=== PATIENT | female | born 1955 | race Caucasian/White ===

== ENCOUNTER 2018-03-17 08:36 | Day surgery (SDC) | payer OTHER ==
[2018-03-17] MEDS: NS 1,000 ML IV (09:30)
[2018-03-17] MEDS ORDERED: LIDOCAINE 2% INJ 100 MG/5 ML SDV (FOR ANES.) As Ordered (10:20)
[2018-03-17] MEDS ORDERED: PROPOFOL 200 MG/20 ML VIAL As Ordered ×2 (10:20)
== END 2018-03-17 10:55 | disposition home or self-care (01) ==
LOC: M OPP 08:36
DX: Z12.11 Encounter for screening for malignant neoplasm of colon (principal); Z86.010 Personal history of colon polyps; K57.30 Diverticulosis of large intestine without perforation or abscess without bleeding; K64.8 Other hemorrhoids; I10 Essential (primary) hypertension; E78.5 Hyperlipidemia, unspecified; E11.9 Type 2 diabetes mellitus without complications; K21.9 Gastro-esophageal reflux disease without esophagitis; F41.9 Anxiety disorder, unspecified; Z78.0 Asymptomatic menopausal state; J45.909 Unspecified asthma, uncomplicated; M19.90 Unspecified osteoarthritis, unspecified site; R06.83 Snoring; Z85.3 Personal history of malignant neoplasm of breast; Z88.8 Allergy status to other drugs, medicaments and biological substances; Z79.84 Long term (current) use of oral hypoglycemic drugs; Z79.899 Other long term (current) drug therapy; Z80.42 Family history of malignant neoplasm of prostate; Z80.41 Family history of malignant neoplasm of ovary; Z80.3 Family history of malignant neoplasm of breast
CPT/HCPCS: 45378

== ENCOUNTER → 2018-03-26 | Outpatient (CLI) | payer OTHER | LOC: M RAD 09:16 | DX: J32.4 Chronic pansinusitis (principal) | CPT/HCPCS: 70486 ==

== ENCOUNTER → 2018-07-31 | Outpatient (CLI) | payer OTHER | LOC: M RAD 14:23 | DX: J32.4 Chronic pansinusitis (principal) | CPT/HCPCS: 70486 ==

== ENCOUNTER 2018-08-11 10:17 | Day surgery (SDC) | payer OTHER ==
[2018-08-11] MEDS ORDERED: ONDANSETRON 4MG/2ML VIAL (J2405) As Ordered (10:27)
[2018-08-11] MEDS ORDERED: dexameTHASONE 4 MG/ML 1ML VIAL (J1100) As Ordered (10:27)
[2018-08-11] MEDS ORDERED: LIDOCAINE 2% INJ 100 MG/5 ML SDV (FOR ANES.) As Ordered (10:27)
[2018-08-11] MEDS ORDERED: MIDAZOLAM INJ 2 MG/2 ML VIAL (J2250) As Ordered (10:27)
[2018-08-11] MEDS ORDERED: METOCLOPRAMIDE INJ 10MG/2ML VIAL (J2765) As Ordered (10:27)
[2018-08-11] MEDS ORDERED: SUCCINYLCHOLINE 100 MG/5 ML SYRINGE (J0330) As Ordered (10:27)
[2018-08-11] MEDS ORDERED: PROPOFOL 200 MG/20 ML VIAL As Ordered (10:27)
[2018-08-11] MEDS ORDERED: fentaNYL 100 MCG/2 ML INJECTION (J3010) As Ordered (10:28)
[2018-08-11] MEDS: LR 1,000 ML IV ×2 (11:09→15:11)
[2018-08-11 11:12] LABS: BEDSIDE GLUCOSE 119 MG/DL (80-115)
[2018-08-11] MEDS: EPINEPHrine 1MG/ML INJ 30ML MD-VIAL As Ordered (13:24)
[2018-08-11] MEDS: METHYLENE BLUE 0.5% (5MG/ML) 10 ML AMP (PROVAYBLUE)(Q9968 PER 1MG) As Ordered (13:24)
[2018-08-11] MEDS: LIDOCAINE W/EPINEPHRINE 1% 20ML VIAL As Ordered (14:26)
[2018-08-11] MEDS ORDERED: LR 1,000 ML IV (14:45)
[2018-08-11] MEDS ORDERED: ONDANSETRON 4MG/2ML VIAL (J2405) IV (14:45)
[2018-08-11] MEDS ORDERED: fentaNYL 100 MCG/2 ML INJECTION (J3010) IV (14:45)
[2018-08-11] MEDS: NORCO, ANEXSIA 5/325MG TABLET (HYDROcodone/ACETAMINOPHEN) PO (15:12)
== END 2018-08-11 16:25 | disposition home or self-care (01) ==
LOC: M SDC 16:25
DX: J31.0 Chronic rhinitis (principal); J34.89 Other specified disorders of nose and nasal sinuses; E11.9 Type 2 diabetes mellitus without complications; K21.9 Gastro-esophageal reflux disease without esophagitis; I10 Essential (primary) hypertension; F41.9 Anxiety disorder, unspecified; J45.909 Unspecified asthma, uncomplicated
CPT/HCPCS: 31237

== ENCOUNTER → 2022-08-23 | Outpatient (CLI) | payer MEDICARE, OTHER ==
[~2022-08-23] MED LIST: ALLE180T33 PO; AUGM500T34 PO; BUDE32SU6; HYDR12.55 PO; LOSA50TA5 PO; METF-817 PO; OMEP1CAP73 PO; QNAS80AE; SERT-141 PO; SIMV20TA22 PO; SING10TA32 PO; SYMB16INH INH; VENTAER INH; VITA200016 PO
== END ==
LOC: M WUC 11:49
PROVIDERS: ATTEND Registered Nurse
DX: R06.02 Shortness of breath (principal)

== ENCOUNTER → 2022-09-11 | Outpatient (REF) | payer MEDICARE, OTHER | LOC: M LAB REF 16:20 | PROVIDERS: ATTEND Internal Medicine | DX: E07.89 Other specified disorders of thyroid (principal) ==

== ENCOUNTER → 2022-09-23 | Outpatient (CLI) | payer MEDICARE, OTHER | LOC: M CARPUL 10:16 | PROVIDERS: ATTEND Registered Nurse | DX: R06.02 Shortness of breath (principal); I35.8 Other nonrheumatic aortic valve disorders ==

== ENCOUNTER → 2022-12-04 | Outpatient (CLI) | payer MEDICARE, OTHER | LOC: M RAD 12-02 07:39 | PROVIDERS: ATTEND Internal Medicine Endocrinology, Diabetes & Metabolism | DX: E05.90 Thyrotoxicosis, unspecified without thyrotoxic crisis or storm (principal) | CPT/HCPCS: 78012; A9516 ==

== ENCOUNTER → 2023-01-02 | Outpatient (CLI) | payer MEDICARE, OTHER | LOC: M RAD 08:05 | PROVIDERS: ATTEND Internal Medicine Endocrinology, Diabetes & Metabolism | DX: E05.00 Thyrotoxicosis with diffuse goiter without thyrotoxic crisis or storm (principal) | CPT/HCPCS: 79005; A9517 ==

== ENCOUNTER 2023-06-16 07:36 | Day surgery (SDC) | payer MEDICARE, OTHER ==
[~2023-06-16] VITALS: Ht 154.9 cm; Wt 78.0 kg
[~2023-06-16 07:36] MED LIST changes: +LEVO112T2 PO; +LOSA100T5 PO; +MONT-5 PO; +NS 1,000 ML IV ONE; -SING10TA32 PO
[2023-06-16] MEDS ORDERED: LIDOCAINE 2% 100MG/5ML SDV (FOR ANES.) As Ordered ONE (08:46)
[2023-06-16] MEDS ORDERED: propofoL 200 MG/20 ML VIAL As Ordered ONE (08:46)
[2023-06-16 09:30] VITALS: BP 117/60; TEMP 96.8; O2SAT 99
== END 2023-06-16 09:42 | disposition home or self-care (01) ==
LOC: M OPP 07:36
PROVIDERS: ATTEND Internal Medicine Gastroenterology
DX: Z12.11 Encounter for screening for malignant neoplasm of colon (principal); Z86.010 Personal history of colon polyps; D12.4 Benign neoplasm of descending colon; K57.30 Diverticulosis of large intestine without perforation or abscess without bleeding; K64.8 Other hemorrhoids; Z79.02 Long term (current) use of antithrombotics/antiplatelets; Z79.84 Long term (current) use of oral hypoglycemic drugs; Z79.890 Hormone replacement therapy; Z79.899 Other long term (current) drug therapy; Z88.6 Allergy status to analgesic agent

== ENCOUNTER → 2025-09-05 | Outpatient (CLI) | payer MEDICARE, OTHER ==
[~2025-09-05] MED LIST changes: +METF-1156 PO; -METF-817 PO; -NS 1,000 ML IV ONE
== END ==
LOC: M WUC 10:12
PROVIDERS: ATTEND Internal Medicine
DX: I45.10 Unspecified right bundle-branch block (principal)